=== PATIENT | male | born 1985 | race Caucasian/White ===

== ENCOUNTER 2016-10-22 06:10 | Day surgery (SDC) | payer OTHER ==
[2016-10-22] MEDS ORDERED: ceFAZolin 2 GM/50 ML 0 ML IV ONE (06:36)
[2016-10-22] MEDS ORDERED: ACETAMINOPHEN 1,000 MG/100 ML 0 ML IV ONE (06:36)
[2016-10-22] MEDS ORDERED: CELECOXIB 100 MG CAPSULE PO ONE (06:36)
[2016-10-22] MEDS ORDERED: LACTATED RINGERS 1,000 ML IV ONE (06:38)
== END 2016-10-22 06:11 | disposition home or self-care (01) ==
DX: S83.511A Sprain of anterior cruciate ligament of right knee, initial encounter (principal); Z53.8 Procedure and treatment not carried out for other reasons
CPT/HCPCS: A9270; J7120

== ENCOUNTER 2016-10-27 06:09 | Day surgery (SDC) | payer OTHER ==
[2016-10-27] MEDS ORDERED: ACETAMINOPHEN 1,000 MG/100 ML 100 ML IV ONE (06:24)
[2016-10-27] MEDS ORDERED: ceFAZolin 2 GM/50 ML 50 ML IV ONE (06:24)
[2016-10-27] MEDS ORDERED: CELECOXIB 100 MG CAPSULE PO ONE (06:25)
[2016-10-27] MEDS ORDERED: LACTATED RINGERS 1,000 ML IV ONE ×2 (06:45→12:13)
[2016-10-27] MEDS ORDERED: LIDOCAINE-MPF 2% 5 ML VIAL IM ONE (08:30)
[2016-10-27] MEDS ORDERED: MIDAZOLAM 2 MG/2 ML VIAL IVP ONE (08:30)
[2016-10-27] MEDS ORDERED: ceFAZolin 2 GM/50 ML BAG IV ONE (08:30)
[2016-10-27] MEDS ORDERED: PROPOFOL 200 MG/20 ML VIAL IVP ONE (08:30)
[2016-10-27] MEDS ORDERED: DEXAMETHASONE 4 MG/ML VIAL IVP ONE (08:30)
[2016-10-27] MEDS ORDERED: fentaNYL 250 MCG/5 ML VIAL IVP ONE (08:30)
[2016-10-27] MEDS ORDERED: ACETAMINOPHEN 1,000 MG/100 ML VIAL IV ONE (08:30)
[2016-10-27] MEDS ORDERED: BUPIVACAINE 0.5%-EPI 1:200000 PF 30 ML VIAL SUBQ ONE (08:30)
[2016-10-27] MEDS ORDERED: MORPHINE PF 5 MG/10 ML AMP SUBQ ONE (11:13)
[2016-10-27] MEDS ORDERED: ROPIVACAINE 0.2% PF 20 ML AMPULE SUBQ ONE (11:13)
== END 2016-10-27 06:10 | disposition home or self-care (01) ==
PROC: 0SBC4ZZ Excision of Right Knee Joint, Percutaneous Endoscopic Approach (ICD-10-PCS; 2016-10-27)
PROC: 0MUN47Z Supplement Right Knee Bursa and Ligament with Autologous Tissue Substitute, Percutaneous Endoscopic Approach (ICD-10-PCS; principal; 2016-10-27 07:30)
DX: S83.511A Sprain of anterior cruciate ligament of right knee, initial encounter (principal); M94.261 Chondromalacia, right knee; M67.51 Plica syndrome, right knee; S83.281A Other tear of lateral meniscus, current injury, right knee, initial encounter; X50.1XXA Overexertion from prolonged static or awkward postures, initial encounter; Y93.62 Activity, american flag or touch football; Y92.321 Football field as the place of occurrence of the external cause; Y99.8 Other external cause status; F17.210 Nicotine dependence, cigarettes, uncomplicated
CPT/HCPCS: 29881; 29888; 73560; A9270; C1713; J0131; J0690; J3010; J7120